=== PATIENT | female | born 1955 | race Caucasian/White ===

== ENCOUNTER 2017-02-06 07:27 | Inpatient (IN) | payer MEDICARE, OTHER ==
--- NOTE | 2017-02-04 09:37 | PREOPHP ---
DATE OF ADMISSION: 02/06/2017 PREOPERATIVE INTERNAL MEDICINE CONSULTATION, MEDICAL HISTORY AND physical The patient to have surgery with Dr. Wayne Matute 02/06/2017. REASON FOR CONSULTATION: Consultation requested by Dr. Wayne Matute for medical evaluation and cl earance of a 61-year-old woman about to undergo surgery on her shoulder. Thank you, Dr. Matute, for allowing us to participate in care of this patient. HISTORY OF PRESENT ILLNESS: Naomi Cisneros, a 61-year-old woman, has had the following surgeries on her right shoulder: 2 arthroscopic and 1 shoulder replacement. Also had arthroscopic surgery in her l eft shoulder as well as arthroscopic surgery on her left knee; however, her shoulder replacement at this point is troublesome and giving her symptoms. May need to be redone at this particular point i n time. Other than her shoulder surgeries and knee, she has had epidurals on her neck as well as in jury at L4-L5, compression fracture. Her deliveries were all vaginal. Other than that, she has not broken any big bones, has no allergies to medications, has been basically healthy without any signi ficant medical hospitalizations. MEDICATIONS: Currently is currently taking the following medications: 1. Alprazolam 2 mg b.i.d. p.r.n. 2. Atorvastatin 20 mg a day. 3. Baclofen 20 mg b.i.d. 4. Celexa 20 mg a day. 5. Lidocaine 5% patch for her back. 6. Oxycodone (Percocet) 10/325 1 q.4 hours p.r.n. 6. Temazepam 30 mg at bedtime p.r.n. 7. She was also started recently on Singulair 10 mg a day. ALLERGIES: MENTIONED ABOVE, SHE IS NOT ALLERGIC TO ANY MEDICATIONS. SOCIAL HISTORY: The patient is single, has 3 children and 2 grandchildren. She still smokes about a pack of cigarettes a day, has been doing so for many years. Alcohol socially. Drinks 2 cups of c offee a day. 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 FAMILY HISTORY: Both parents are . Father at age 76, COPD. Mother 74, had a stroke, also had hypertension, 3 siblings in good health. Family history of heart, cancer, hypertension, [place], and COPD. REVIEW OF SYSTEMS: HEENT: Periodic headaches. CARDIORESPIRATORY: Denies any chest pain or shortness of breath. GASTROINTESTINAL: No melena or hematemesis. Does have some irritable bowel, possibly secondary to her pain medications. GENITOURINARY: No urgency, frequency. GYNECOLOGIC: Post menopause, up to date. MUSCULOSKELETAL: Positive for right shoulder pain. NEUROPSYCHIATRIC: Unremarkable. GENERAL HEALTH: As above. PHYSICAL EXAMINATION: VITAL SIGNS: The patient's blood pressure was 110/68, pulse was 88 and regular, respirations were 1 8, temperature 98.5, height 5 feet 1 inch, weight 109 pounds. GENERAL: The patient was noted to be a well-developed, well-nourished female, alert and cooperative , in no apparent acute distress, oriented to time, place, and person. HEAD, EARS, EYES, NOSE, AND THROAT: Head was atraumatic. Eyes: Pupils were equal, reactive to lig ht and accommodation. Fundi were benign. Tympanic membranes were unremarkable. Nose was negative. Mouth was unremarkable. Fair oral hygiene was present. NECK: Supple without any rigidity. Trachea was midline. Thyroid was within normal limits. Neck v eins were flat. Carotid pulses were equal. No bruits were heard. BACK: Unremarkable. CHEST: Symmetrical. BREASTS AND AXILLARY: Did not reveal any masses. LUNGS: Clear to percussion and auscultation. HEART: PMI is in the fifth intercostal space at the midclavicular line. Regular sinus rhythm was n oted. No significant murmurs, rubs, or gallops being elicited. ABDOMEN: Soft, good bowel sounds were noted. No significant organomegaly, masses, or tenderness. GENITALIA: Normal female external genitalia. PELVIC/RECTAL: Per magazine grinder loader, up to date, unremarkable. EXTREMITIES: Did not reveal any clubbing, edema, or cyanosis. Peripheral pulses were physiologic a nd difficulty with movement of the right shoulder being noted. SKIN: Moist and warm without any eruptions. No gross lymphadenopathy was noted. NEUROLOGIC: Grossly intact. IMPRESSION: 1. Degenerative joint disease, right shoulder, status post total shoulder replacement. 2. Hyperlipidemia. 3. Allergies. 4. Menopausal syndrome. 5. Stable health. DISCUSSION: Review of laboratory and other data revealed the following: The patient's chemistry pa grace revealed normal electrolytes, glucose, BUN, creatinine. Liver function tests were normal other than an alkaline phosphatase which probably was bony in etiology. Temperature was 108. Random chol esterol was 240. Serum iron was slightly low at 44. CBC, UA, PT, and PTT were normal. The patient 's EKG and chest x-ray were both normal as well. Dr. Matute, I see no contraindication to this patient undergoing current proposed surgery under the desired form of anesthesia and will follow her along with you during her stay at [facility]. Thank you again, Dr. Matute, for allowing us to participate in the care of this patient. Dictated By: BOO GRIGSBY MD SS/NTS Conf#: [id number] DID#: [id number]
[2017-02-06] VITALS (26 sets, daily range): BP systolic 97–144; BP diastolic 54–90; PULSE 70–88; RESP 15–24; Ht 154.9 cm; Wt 49.0 kg
[~2017-02-06] VITALS: Ht 154.9 cm; Wt 49.0 kg
[~2017-02-06 07:27] MED LIST: ALPR2TAB PO; ATOR20TA38 PO; BACL20TA PO; BUPIVACAINE 0.5% (SDV) 30 ML, morphine SULFATE (PF) 8 MG, EPINEPHrine 0.3 MG, KETOROLAC... IRR SCH; CEFAZOLIN 2 GM/50 ML (PMX) 50 ML IVPB ONE; CITA20TA11 PO; DEXAMETHASONE 1 MG TAB PO ONE; GABAPENTIN 300 MG CAP PO ONE; LIDO700A31 TP; OXYC-284 PO; TEMA30CA PO; TRANEXAMIC ACID 1,000 MG in SOD CHLORIDE 0.9% 100 ML IVPB ONE; VANCOMYCIN 1 GM (PMX) 250 ML IVPB ONE; oxyCODONE (CR) 10 MG TAB [oxyCONTIN] PO ONE; traMADol 50 MG TAB PO ONE
[2017-02-06] MEDS ORDERED: MONT10TA21 PO (08:16)
--- NOTE | 2017-02-06 08:28 | HPN ---
Date/Time of Note Date/Time of Note DATE: 02/06/17 TIME: 08:28 Interval H&P Admission Note Pt. seen H&P reviewed: No system changes JUAN ALBERTO SOLIS MD Feb 06, 2017 08:28
[2017-02-06] MEDS ORDERED: BUPIVACAINE 0.5%/EPI (SDV) 30 ML INJ ONE (08:29)
[2017-02-06] MEDS ORDERED: POLYMYXIN/BACITRACIN 1L IRRIG ONE (08:29)
[2017-02-06] MEDS ORDERED: THROMBIN 5000 UNIT VIAL ONE (08:29)
[2017-02-06] MEDS ORDERED: FENTAnyl 50 MCG/ML VIAL ONE (09:00)
[2017-02-06] MEDS ORDERED: MIDAZOLAM 1 MG/ML 2 ML INJ ONE (09:00)
[2017-02-06] MEDS ORDERED: ROPIVACAINE 0.5 % 30 ML VIAL ONE (09:03)
[2017-02-06] MEDS ORDERED: FENTAnyl 50 MCG/ML VIAL IV PRN (10:00)
[2017-02-06] MEDS ORDERED: HYDROmorphONE (0.2 MG/ML) 10ML SYG IV PRN ×2 (10:00)
[2017-02-06] MEDS ORDERED: MEPERIDINE 25 MG INJ IV PRN (10:00)
[2017-02-06] MEDS ORDERED: NALOXONE (0.4 MG/ML) INJ IV PRN ×2 (10:00→12:30)
[2017-02-06] MEDS ORDERED: ONDANSETRON 4 MG INJ IV PRN ×2 (10:00→16:00)
[2017-02-06] MEDS ORDERED: DIPHENHYDRAMINE 50 MG INJ IV PRN ×2 (10:00→16:00)
[2017-02-06] MEDS ORDERED: CA CHLORIDE 10% 10 ML SYRINGE ONE (10:05)
[2017-02-06] MEDS ORDERED: PROPOFOL 20 ML ONE (11:25)
[2017-02-06] MEDS ORDERED: LIDOCAINE 2% (SDV) 5 ML INJ ONE (11:25)
[2017-02-06] MEDS ORDERED: CEFAZOLIN 1 GM INJ ONE (11:25)
[2017-02-06] MEDS ORDERED: ROCURONIUM 50 MG INJ ONE (11:25)
[2017-02-06] MEDS ORDERED: NEOSTIGMINE 3 MG/3 ML SYRINGE ONE (11:25)
[2017-02-06] MEDS ORDERED: GLYCOPYRROLATE 0.4 MG INJ ONE (11:25)
[2017-02-06] MEDS ORDERED: ONDANSETRON 4 MG INJ ONE (11:26)
--- NOTE | 2017-02-06 11:29 | PDOCDIS ---
Discharge Instructions DIAGNOSIS Discharge Diagnosis: Rotator cuff tear with loose humeral component CONDITION Patient Condition: Good HOME CARE INSTRUCTIONS: Diet Instructions: Regular ACTIVITY: Activity Restrictions: Slowly Increase Activity Keep Limb Elevated Bathing Restrictions: Shower FOLLOW UP/APPOINTMENTS Appointments Two weeks SCHOOL/WORK RELEASE May return to School/Work with: With Restrictions School/Work Release Comment: Five pound table top usage for six weeks JUAN ALBERTO SOLIS MD Feb 06, 2017 11:29
[2017-02-06] MEDS ORDERED: ACETAMINOPHEN 500 MG TAB PO PRN (11:30)
[2017-02-06] MEDS ORDERED: KETOROLAC 15 MG INJ IV PRN (11:30)
[2017-02-06] MEDS ORDERED: MAGNESIUM HYDROXIDE 30ML CUP PO PRN (11:30)
[2017-02-06] MEDS ORDERED: TRANEXAMIC ACID 1,000 MG in SOD CHLORIDE 0.9% 100 ML IV ONE (11:30)
--- NOTE | 2017-02-06 11:42 | OPR ---
DATE OF OPERATION: 02/06/2017 ATTENDING PHYSICIAN: Juan Alberto Matute MD FOUR H AGENT: Stevie Steele MD PREOPERATIVE DIAGNOSIS: Failed right shoulder replacement. POSTOPERATIVE DIAGNOSES: 1. Failed right total shoulder replacement. 2. Subscapularis tendon disruption. OPERATION PERFORMED: 1. Right open revision of total shoulder humeral component (revision of hemiarthroplasty). 2. Open reconstruction of subscapularis tendon deficiency. Mine Safety Director surgeon, Stevie Steele MD, was asked to be present at my request as a result of the signi ficant surgical complexity associated with this procedure, including positioning of the extremity, m anipulation and protection of the neurovascular structures. In my opinion, the assistance offered b y a windmill technician is insufficient and Dr. Steele should be compensated for his time. PROCEDURE IN DETAIL: Following administration of general endotracheal anesthesia, the patient was p laced in the beach chair position and the right upper extremity was then prepped and draped in the u sual sterile fashion. The previously made deltopectoral incision was then exposed. The subdeltoid plane was markedly scarred. There was significant bursal reactive tissue, which was excised. The h umeral component was seen to be subluxed anterosuperiorly. The superior rotator cuff was intact. T he subscapularis was detached and stretched out. There was what appeared to be loosening of the hum eral component as well. The humeral component was then carefully removed from the humeral shaft and the shaft was prepared f or an 8-mm humeral component that was placed in 35 degrees of retroversion. Attention was then directed to the medial aspect where the subscapularis tendon deficiency was noted . The subscapularis base was then mobilized as far laterally as possible. Following the complete m obilization there was approximately a 1-cm stump of the subscapularis that was used to serve as a me dial base for the repair of the subscapularis. Following this mobilization, the humeral component w as then cemented in that 35-degree retroversion position. This was a Mobiliouy component. Multiple sut ures were then passed circumferentially around the humeral component prior to insertion. Once the c ement hardened, a portion of the allograft was induced. Specifically, we used an allograft skin, wh ich is 5 mm in thickness. This was passed through the lateral sutures and then used as a bridge acr oss to the medial aspect of the subscapularis in order to reconstruct that tissue. The joint was th en irrigated thoroughly, closed in layers. A Prineo dressing was then applied. The patient was the n awakened after being placed in a sling and taken to the recovery room in stable condition. Estima kristine blood loss for this procedure was 150 mL. Postoperative x-rays will be obtained in the recovery room. Dictated By: JUAN ALBERTO RODRIGUEZ/CAROLA Conf#: [id number] DID#: [id number]
[2017-02-06] MEDS ORDERED: CEFAZOLIN 1 GM/50 ML (PMX) 50 ML IVPB SCH (12:00)
--- NOTE | 2017-02-06 13:08 | RADRPT ---
PROCEDURE: XR right shoulder. CLINICAL INDICATION: Postoperative TECHNIQUE: AP, Internal and external rotation views of the right shoulder were performed. COMPARISON: Plain radiographs of the right shoulder from 12/14/2015 FINDINGS: There is normal osseous mineralization and alignment. No acute fracture or osseous lesion is identified. The right shoulder prosthesis is again noted in near anatomic alignment. The rim of lucency seen pr eviously around the humeral head prosthesis is no longer visualized. Likely postsurgical changes ar e noted including subcutaneous emphysema. The acromioclavicular joint is intact. RPTAT: AA IMPRESSION: Right shoulder prosthesis in near anatomic alignment without evidence of hardware loosening and is l ikely postoperative changes, as above. Physician Don Date Time Electronically viewed and signed by Sarbjit Dixon Physician on 02/06/2017 13:07 /
--- NOTE | 2017-02-06 13:34 | CONS ---
DATE OF ADMISSION: 02/06/2017 DATE OF CONSULTATION: 02/06/2017 POSTOPERATIVE CONSULT FOLLOWUP The patient had surgery with Dr. Wayne Matute on 02/06/2017, a rotator cuff repair. The patient was seen in the recovery room postoperatively. She was quite alert with no particular i ssue. He seemed comfortable. PHYSICAL EXAMINATION: VITAL SIGNS: The patient's vital signs revealed a blood pressure of 126/63, respiratory rate 22, pul se 72, O2 saturation 99% on nasal cannula at 2 liters. HEENT: Unremarkable. LUNGS: Clear. HEART: Reveals a regular rhythm. IMPRESSION: 1. Status post right shoulder surgery. 2. Hyperlipidemia. 3. Chronic pain syndrome. 4. Allergies. DISCUSSION: The plan is to follow the patient with you. Preoperative medicines will be ordered in terms of her allergy and other medications that she is taking. CONDITION: Postoperatively is stable. Thank you again, Dr. Matute, for allowing us to participate in care of this patient. Dictated By: BOO BEAL/CAROLA Conf#: [id number] DID#: [id number]
[2017-02-06] MEDS: DEXAMETHASONE 2 MG TAB PO SCH ×3 (14:00→22:56)
[2017-02-06] MEDS ORDERED: OXYCODONE/ACETAMINOPHEN (5/325) TAB PO PRN (16:00)
[2017-02-06] MEDS ORDERED: morphine 2 MG INJ IV PRN (16:00)
[2017-02-06] MEDS ORDERED: morphine 4 MG/ML VIAL IV PRN (16:00)
[2017-02-06] MEDS: CEFAZOLIN 1 GM/50 ML (PMX) 50 ML IVPB SCH (16:44)
[2017-02-06] MEDS: SENNA/DOCUSATE NA (8.6MG/50MG) TAB PO SCH (20:50)
[2017-02-06] MEDS: BACLOFEN 10 MG TAB PO SCH (20:50)
[2017-02-06] MEDS ORDERED: ZOLPIDEM 5 MG TAB PO PRN (21:00)
[2017-02-06] MEDS ORDERED: ATORVASTATIN 20 MG TAB PO SCH (21:00)
[2017-02-06] MEDS ORDERED: GABAPENTIN 300 MG CAP PO SCH (21:00)
[2017-02-06] MEDS ORDERED: MONTELUKAST 10 MG TAB PO SCH (21:00)
[2017-02-06] MEDS ORDERED: CEPASTAT LOZENGE MT PRN (22:00)
[2017-02-06] MEDS ORDERED: ALPRAZOLAM 1 MG TAB PO PRN (22:00)
[2017-02-07] MEDS: CEFAZOLIN 1 GM/50 ML (PMX) 50 ML IVPB SCH ×2 (01:23→08:27)
[2017-02-07] MEDS: OXYCODONE/ACETAMINOPHEN (5/325) TAB PO PRN ×2 (04:29→08:32)
[2017-02-07] MEDS: DEXAMETHASONE 2 MG TAB PO SCH (06:01)
--- NOTE | 2017-02-07 06:09 | PN ---
Date/Time of Note Date/Time of Note DATE: 02/07/17 TIME: 06:08 24 hour Interval Summary Patient is awake and alert, with no complaints. Physical examination: His wound is clean and dry. He is neurologically intact. He has no signs of DVT. Impression: Status post total shoulder replacement Plan: She will be discharged this morning followed up in 2 weeks Physical Exam Vital Signs Date Time Temp Pulse Resp B/P Pulse Ox O2 Delivery O2 Flow Rate FiO2 02/06/17 21:22 98.8 75 20 128/72 94 02/06/17 17:30 Room Air 02/06/17 12:40 2.0 Intake and Output 02/06/17 02/06/17 02/07/17 15:00 23:00 07:00 Intake Total 30 ml 850 ml 850 ml Output Total 200 ml Balance 30 ml 650 ml 850 ml VTE Prophylaxis VTE Prophylaxis Intervention: anti-embolic stocking Lines/Catheters IV Catheter Type: Saline Lock [place] in Place: No Medications Medications Home Meds Reported Medications Montelukast Sodium* (Singulair*) 10 Mg Tablet, 10 MG PO QHS, #30 TAB 02/06/17 Temazepam* (Temazepam*) 30 Mg Capsule, 30 MG PO HS Y for INSOMNIA, CAP 12/14/15 Oxycodone Hcl-Acetaminophen* (Percocet*) 10-325 Mg Tablet, 1 TAB PO Q4H Y for MODERATE PAIN LEVEL 4-6, TAB 12/14/15 Baclofen* (Baclofen*) 20 Mg Tablet, 20 MG PO BID, TAB 12/14/15 Alprazolam* (Xanax*) 2 Mg Tablet, 2 MG PO BID Y for AGITATION/ANXIETY, TAB 12/14/15 Citalopram Hydrobromide* (Celexa*) 20 Mg Tablet, 20 MG PO DAILY, #30 TAB 12/14/15 Atorvastatin Calcium* (Atorvastatin Calcium*) 20 Mg Tablet, 20 MG PO QHS, #30 TAB 12/14/15 Discontinued Reported Medications Lidocaine 5%* (Lidocaine 5%) 1 Patch Patch, 1 PATCH TP DAILY, PATCH 12/14/15 JUAN ALBERTO SOLIS MD Feb 07, 2017 06:09
--- NOTE | 2017-02-07 06:10 | DS ---
Date/Time of Note Date/Time of Note DATE: 02/07/17 TIME: 06:09 Discharge Summary Admission/Discharge Info Admit Date/Time Feb 06, 2017 at 07:27 Discharge Date/Time February 07, 2017 Final Diagnosis Subscapularis tear with loose humeral shoulder component Patient Condition: Good Procedures Revision of shoulder replacement with subscapularis repair Hx of Present Illness Pain and instability following shoulder replacement Hospital Course Patient was admitted, underwent an uncomplicated procedure and was discharged the next day. Home Meds Reported Medications Montelukast Sodium* (Singulair*) 10 Mg Tablet, 10 MG PO QHS, #30 TAB 02/06/17 Temazepam* (Temazepam*) 30 Mg Capsule, 30 MG PO HS Y for INSOMNIA, CAP 12/14/15 Oxycodone Hcl-Acetaminophen* (Percocet*) 10-325 Mg Tablet, 1 TAB PO Q4H Y for MODERATE PAIN LEVEL 4-6, TAB 12/14/15 Baclofen* (Baclofen*) 20 Mg Tablet, 20 MG PO BID, TAB 12/14/15 Alprazolam* (Xanax*) 2 Mg Tablet, 2 MG PO BID Y for AGITATION/ANXIETY, TAB 12/14/15 Citalopram Hydrobromide* (Celexa*) 20 Mg Tablet, 20 MG PO DAILY, #30 TAB 12/14/15 Atorvastatin Calcium* (Atorvastatin Calcium*) 20 Mg Tablet, 20 MG PO QHS, #30 TAB 12/14/15 Discontinued Reported Medications Lidocaine 5%* (Lidocaine 5%) 1 Patch Patch, 1 PATCH TP DAILY, PATCH 12/14/15 JUAN ALBERTO SOLIS MD Feb 07, 2017 06:10
[2017-02-07 08:08] VITALS: BP 126/67; RESP 18
[2017-02-07] MEDS: BACLOFEN 10 MG TAB PO SCH (08:26)
[2017-02-07] MEDS: SENNA/DOCUSATE NA (8.6MG/50MG) TAB PO SCH (08:27)
[2017-02-07] MEDS ORDERED: CITALOPRAM 20 MG TAB PO SCH (09:00)
[2017-02-07] MEDS ORDERED: ASPIRIN 81 MG TAB PO SCH (09:00)
--- NOTE | 2017-02-07 10:17 | CONS ---
DATE OF ADMISSION: 02/06/2017 DATE OF CONSULTATION: 02/07/2017 POSTOPERATIVE CONSULT FOLLOWUP SUBJECTIVE: The patient alert this morning, had an episode of choking on some water that she was tr rahul to drink. Feels better now, but it upset her last night. OBJECTIVE: VITAL SIGNS: The patient's vital signs this morning reveal the following: Temperature 98.2, pulse 82, respirations 18, blood pressure 126/67, O2 saturation 94%. HEENT: Unremarkable. EXTREMITIES: The wound looks clean in the right shoulder. LUNGS: Clear. HEART: Reveals a regular rhythm. ABDOMEN: Unremarkable. IMPRESSION: 1. Status post right shoulder surgery. 2. Hyperlipidemia. 3. Chronic pain syndrome. 4. Environmental allergies. DISCUSSION: Review of laboratory data, there was no laboratory ordered for today. The patient is g enerally stable. She was seen by Dr. Matute today and was discharged by Dr. Matute. Condition is stable from a medical standpoint and management and discharge per Dr. Wayne Matute. Thank you again, Dr. Matute, for allowing us to participate in care of this patient. Dictated By: BOO GRIGSBY MD SS/NTS Conf#: [id number] DID#: [id number]
== END 2017-02-07 09:40 | disposition home or self-care (01) | DRG 483 ==
LOC: REC 07:27 → MS1 13:20
PROVIDERS: ADMIT Orthopaedic Surgery; ATTEND Orthopaedic Surgery
PROC: 0RPJ0JZ Removal of Synthetic Substitute from Right Shoulder Joint, Open Approach (ICD-10-PCS; 2017-02-06)
PROC: 0LQ10ZZ Repair Right Shoulder Tendon, Open Approach (ICD-10-PCS; 2017-02-06)
PROC: 0RRJ0J6 Replacement of Right Shoulder Joint with Synthetic Substitute, Humeral Surface, Open Approach (ICD-10-PCS; principal; 2017-02-06 09:30)
DX: T84.038A Mechanical loosening of other internal prosthetic joint, initial encounter (principal); E78.5 Hyperlipidemia, unspecified; Z96.611 Presence of right artificial shoulder joint; F17.210 Nicotine dependence, cigarettes, uncomplicated; Z78.0 Asymptomatic menopausal state; Y84.8 Other medical procedures as the cause of abnormal reaction of the patient, or of later complication, without mention of misadventure at the time of the procedure; Y92.019 Unspecified place in single-family (private) house as the place of occurrence of the external cause; M75.101 Unspecified rotator cuff tear or rupture of right shoulder, not specified as traumatic; G89.4 Chronic pain syndrome
CPT/HCPCS: Z7610; C1713; C1776; J0171; J0690; J0735; J1885; J2250; J2270; J2274; J2405; J2710; J2795; J3010; J3370; Q4107

== ENCOUNTER 2017-07-03 05:22 | Inpatient (IN) | payer MEDICARE, OTHER ==
--- NOTE | 2017-06-26 10:59 | PREOPHP ---
DATE OF ADMISSION: 07/03/2017 Patient to have surgery with Dr. Wayne Matute on 07/03/2017. CONSULTATION REQUESTED BY: Dr. Wayne Matute for medical evaluation and clearance of a 61-year-old woman about to undergo surgery. Thank you, Dr. Matute, for allowing us participate in the care of this patient. Naomi Cisneros is a 61-year-old woman, who underwent a shoulder replacement 5 months ago. Apparently it failed and patient is currently being admitted for a revision and replacement of a shoulder replacement on the right shoulder. PAST SURGICAL HISTORY: Patient has had multiple surgeries. Had 2 arthroscopic surgeries on that shoulder, also 2 replacements and had left-sided arthroscopic surgery, had C-spine epidural done and L4-L5 issues as well treated in the past. PAST MEDICAL HISTORY: From a medical standpoint, she has had no hospitalizations. Has had vaginal deliveries. She has not broken any bones. MEDICATIONS: Currently is taking the following medications: Lipitor 20 mg a day, Xanax, temazepam, Percocet, Singulair 10 mg a day, Celexa 20 mg a day, as well as baclofen 20 mg a day. ALLERGIES: THE PATIENT IS NOT ALLERGIC TO ANY MEDICATIONS. SOCIAL HISTORY: Patient is a , has 3 children and 2 grandchildren. She smokes about a half a pack of cigarettes a day. Alcohol socially. Does drink coffee. Usually has no difficulty sleeping at night. FAMILY HISTORY: Both parents are . Father was 76, of COPD and complications thereof. Mother also in her 70s, hypertension and stroke. Three siblings are alive and well. There is a family history of heart, cancer, hypertension, and stroke. REVIEW OF SYSTEMS: HEENT: Periodic tension headaches. CARDIORESPIRATORY: Denies any chest pain or shortness of breath. GASTROINTESTINAL: No melena or hematemesis. GENITOURINARY: No urgency or frequency. GYNECOLOGIC: Postmenopausal. 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 MUSCULOSKELETAL: Positive for right shoulder pain. NEUROPSYCHIATRIC: Basically unremarkable, other than being somewhat despondent because of her issues with chronic right shoulder pain. GENERAL HEALTH: As above. PHYSICAL EXAMINATION: VITAL SIGNS: Patient's blood pressure was 116/64, pulse was 80 and regular, respirations 19, temperature 98.4. Height 5 feet 1 inch, weight 105 pounds. GENERAL APPEARANCE: Patient was noted to be a well-developed, well-nourished female, alert and cooperative, in no apparent acute distress. Oriented to time, place, and person. HEENT: Head was atraumatic. The eyes: Pupils were equal, reactive to light and accommodation. Fundi were benign. Tympanic membranes were unremarkable. Nose was negative. Mouth was unremarkable. Fair oral hygiene was present. NECK: Supple without any rigidity. Trachea was midline. Thyroid was within normal limits. Neck veins were flat. Carotid pulses were equal. No bruits were heard. BACK: Unremarkable. CHEST: Symmetrical. BREAST AND AXILLARY: Did not reveal any masses. LUNGS: Clear to percussion and auscultation. HEART: PMI is 5th intercostal space at the midclavicular line. Regular sinus rhythm was noted. No significant murmurs, rubs, or gallops being elicited. ABDOMEN: Soft. Good bowel sounds were noted. No significant organomegaly masses or tenderness. GENITALIA: Normal female external genitalia. PELVIC AND RECTAL: Per boom supervisor. Up-to-date. EXTREMITIES: Did not reveal any clubbing, edema, or cyanosis. Scar was noted in the right shoulder area and limitation of motion secondary to discomfort. Peripheral pulses were physiologic. SKIN: Moist and warm without any eruptions. No gross lymphadenopathy was noted. NEUROLOGIC: Exam was grossly intact. IMPRESSION: 1. 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 2. Degenerative joint disease. 3. Hyperlipidemia. 4. Chronic pain syndrome. 5. Gastroesophageal reflux disease. 6. Stable health. LABORATORY AND OTHER DATA: Review revealed the following. Patient's chemistry panel revealed normal electrolytes. Random glucose 106, calcium elevated at 108. However, the total protein was elevated as well, possibly contributing to that. The patient's liver function tests are normal. Minimal elevation of alk phos, probably secondary to bony issues. Random cholesterol was 256. Iron, vitamin D, CBC, sed rate, UA, PT and PTT were within normal limits. Patient's EKG was normal. Patient's chest x-ray was normal as well. DISCUSSION: Dr. Matute, I see no contraindications to the patient undergoing current proposed surgery under desired form of anesthesia and feel she is a suitable candidate at this particular point in time, and will be happy to follow her along with you during her stay at [facility]. Thank you again, Dr. Matute, for allowing us to participate in the care this patient. Dictated By: Sammy Holt MD /maude/partha /Document#: [id number]
[2017-07-02 15:09] VITALS: BMI 20.2
[2017-07-03] VITALS (23 sets, daily range): BP systolic 90–126; BP diastolic 53–70; PULSE 62–72; RESP 16–35; Ht 154.9 cm; Wt 48.3 kg
[~2017-07-03] VITALS: Ht 154.9 cm; Wt 48.3 kg
[~2017-07-03 05:22] MED LIST changes: -BUPIVACAINE 0.5% (SDV) 30 ML, morphine SULFATE (PF) 8 MG, EPINEPHrine 0.3 MG, KETOROLAC... IRR SCH; -CEFAZOLIN 2 GM/50 ML (PMX) 50 ML IVPB ONE; -DEXAMETHASONE 1 MG TAB PO ONE; -GABAPENTIN 300 MG CAP PO ONE; -LIDO700A31 TP; +MONT10TA21 PO; -TRANEXAMIC ACID 1,000 MG in SOD CHLORIDE 0.9% 100 ML IVPB ONE; -VANCOMYCIN 1 GM (PMX) 250 ML IVPB ONE; -oxyCODONE (CR) 10 MG TAB [oxyCONTIN] PO ONE; -traMADol 50 MG TAB PO ONE
[2017-07-03] MEDS ORDERED: LACTATED RINGER'S 1,000 ML IV* SCH (06:00)
[2017-07-03] MEDS ORDERED: oxyCODONE (CR) 10 MG TAB [oxyCONTIN] PO SCH (06:15)
[2017-07-03] MEDS ORDERED: DEXAMETHASONE 1 MG TAB PO ONE (06:15)
[2017-07-03] MEDS ORDERED: traMADol 50 MG TAB PO ONE (06:15)
[2017-07-03] MEDS ORDERED: CEFAZOLIN 2 GM/50 ML (PMX) 50 ML IVPB ONE (06:15)
[2017-07-03] MEDS ORDERED: GABAPENTIN 300 MG CAP PO ONE (06:15)
[2017-07-03] MEDS ORDERED: ROPIVACAINE 0.5 % 30 ML VIAL ONE (06:38)
[2017-07-03] MEDS ORDERED: CEFAZOLIN 1 GM INJ ONE (06:40)
[2017-07-03] MEDS ORDERED: ONDANSETRON 4 MG INJ ONE (06:40)
[2017-07-03] MEDS ORDERED: LIDOCAINE 2% (SDV) 5 ML INJ ONE (06:40)
[2017-07-03] MEDS ORDERED: PROPOFOL 20 ML ONE (06:40)
[2017-07-03] MEDS ORDERED: METOCLOPRAMIDE 10 MG INJ ONE (06:40)
--- NOTE | 2017-07-03 06:46 | HPN ---
Date/Time of Note Date/Time of Note DATE: 07/03/17 TIME: 06:45 Interval H&P Admission Note Pt. seen H&P reviewed: No system changes JUAN ALBERTO SOLIS MD Jul 03, 2017 06:45
[2017-07-03] MEDS ORDERED: CA CHLORIDE 10% 10 ML SYRINGE ONE (06:48)
[2017-07-03] MEDS ORDERED: BUPIVACAINE 0.5%/EPI (SDV) 10 ML INJ ONE (06:48)
[2017-07-03] MEDS ORDERED: THROMBIN 5000 UNIT VIAL ONE (06:48)
[2017-07-03] MEDS ORDERED: POLYMYXIN/BACITRACIN 1L IRRIG ONE (06:48)
[2017-07-03] MEDS ORDERED: SEVOFLURANE 15 MIN ONE (07:00)
[2017-07-03] MEDS ORDERED: EPHEDrine SULFATE 50 MG/5 ML SYG ONE (08:25)
[2017-07-03] MEDS ORDERED: TRANEXAMIC ACID 1,000 MG in SOD CHLORIDE 0.9% 100 ML IV ONE (08:30)
[2017-07-03] MEDS ORDERED: OXYCODONE/ACETAMINOPHEN (5/325) TAB PO PRN (08:30)
[2017-07-03] MEDS ORDERED: ZOLPIDEM 5 MG TAB PO PRN (08:30)
[2017-07-03] MEDS ORDERED: morphine 4 MG/ML VIAL IV PRN (08:30)
[2017-07-03] MEDS ORDERED: morphine 2 MG INJ IV PRN (08:30)
[2017-07-03] MEDS ORDERED: ONDANSETRON 4 MG INJ IV PRN (08:30)
[2017-07-03] MEDS ORDERED: DIPHENHYDRAMINE 50 MG INJ IV PRN (08:30)
[2017-07-03] MEDS ORDERED: KETOROLAC 15 MG INJ IV PRN (08:30)
[2017-07-03] MEDS ORDERED: MAGNESIUM HYDROXIDE 30ML CUP PO PRN (08:30)
[2017-07-03] MEDS ORDERED: ALPRAZOLAM 1 MG TAB PO PRN (08:30)
[2017-07-03] MEDS ORDERED: ACETAMINOPHEN 500 MG TAB PO PRN (08:30)
--- NOTE | 2017-07-03 08:43 | OPR ---
Date/Time of Note Date/Time of Note DATE: 07/03/17 TIME: 08:38 Operative Report Procedure Date: Jul 03, 2017 Preoperative Diagnosis Failed right total shoulder replacement with massive unrepairable rotator cuff tear Postoperative Diagnosis 1. Failed right total shoulder replacement 2. Massive unrepairable rotator cuff tear, right shoulder Operation Performed Revision of right total shoulder to reverse total shoulder replacement Surgeon: JUAN ALBERTO SOLIS MD Electric Freight Car Operator: CASIMIRO SEYMOUR MD Estimated Blood Loss: 50 - 100 ml's Transfusion Required: no Specimen: none Complications: no Pt Condition Post Procedure: stable Disposition: PACU Procedure Description SUEDING MACHINE OPERATOR SURGEON: [Casimiro Seymour MD] was asked to be present for this case at my request. Assistance was necessary as a result of the highly technical nature of this operation. When performing an open total shoulder replacement, it is critical to have a trained assistant professor of geography who is an expert in handling the extremity and assisting the surgeon in tasks such as suture management and knot-tying techniques as well as implants. This assistance cannot be performed by a medical equipment repair technician, as it is considered an integral part of the procedure and the assistant professor of geography should be compensated for their time. PROCEDURE IN DETAIL: Following the administration of general anesthesia supplemented with a peripheral nerve block for postoperative pain control, the patient was examined under anesthesia. Examination of the right shoulder revealed very significant stiffness including a forward flexion of about 100 abduction 90 maximal external rotation 90 with severe crepitus. The patient was then placed in the beach chair position. Sterile prep and drape was then undertaken. An extended deltopectoral incision was then carried through the interval exposing the conjoined tendon and retracting it medially. The subscapularis was completely torn and retracted. The evident sutures from the prior repair were in place. The superior rotator cuff was also deficient. The humeral head was sitting anterior and superior. The humeral component was then identified. The humeral head was removed and the metaphyseal component was then also removed. The shaft was seen to be stable and solid within the intramedullary canal of the humerus. The glenoid was then exposed. The glenoid component was then removed relatively atraumatically preserving the bone completely. The central peg hole was then used for preparing for a central baseplate a standard Depuy baseplate was then implanted with 4 peripheral screws with solid fixation. A 38 mm glenoid sphere was also applied with solid fixation. The humerus was then prepared for a standard humeral component with a standard metaphysis and a 3 mm liner.. The actual components were implanted with solid fixation. The arm was taken through full range of motion with no evident instability. The joint was then thoroughly irrigated, the deep tissues were approximated using #1 suture followed by closure of the deep layer using 2-0 Monocryl. The skin was closed using 4-0 Monocryl suture, and a waterproof dressing. An Ultrasling was then applied. The patient was awakened and transported to the recovery room in stable condition. Estimated blood loss for this procedure was [50 cc]. Radiographs will be obtained in the recovery room. JUAN ALBERTO SOLIS MD Jul 03, 2017 08:43
--- NOTE | 2017-07-03 08:44 | PDOCDIS ---
Discharge Instructions DIAGNOSIS Discharge Diagnosis Failed right total shoulder replaced CONDITION Patient Condition: Good HOME CARE INSTRUCTIONS: Diet Instructions: Regular ACTIVITY: Activity Restrictions: Slowly Increase Activity Keep Limb Elevated Bathing Restrictions: Shower FOLLOW UP/APPOINTMENTS Follow-up Plan 2 weeks SCHOOL/WORK RELEASE May return to School/Work with: With Restrictions (5 pounds tabletop usage for 6 weeks) JUAN ALBERTO SOLIS MD Jul 03, 2017 08:43
[2017-07-03] MEDS ORDERED: SOD CHLORIDE 0.9% 100 ML, TRANEXAMIC ACID 3,000 MG IRR SCH ×2 (09:00)
[2017-07-03] MEDS ORDERED: TRANEXAMIC ACID 1,000 MG in SOD CHLORIDE 0.9% 100 ML IVPB SCH (09:00)
[2017-07-03] MEDS: SENNA/DOCUSATE NA (8.6MG/50MG) TAB PO SCH ×2 (09:00→20:26)
[2017-07-03] MEDS ORDERED: BUPIVACAINE 0.5% (SDV) 30 ML, morphine SULFATE (PF) 8 MG, EPINEPHrine 0.3 MG, KETOROLAC... IRR SCH ×7 (09:00)
[2017-07-03] MEDS: CEFAZOLIN 1 GM/50 ML (PMX) 50 ML IVPB SCH ×2 (09:38→17:22)
--- NOTE | 2017-07-03 09:49 | RADRPT ---
PROCEDURE: XR right shoulder. CLINICAL INDICATION: Pain TECHNIQUE: Internal and external rotation views of the right shoulder were performed. COMPARISON: 02/06/2017 FINDINGS: There are postsurgical changes in the soft tissues of the right shoulder. The patient is status pos t right shoulder replacement. RPTAT: AA IMPRESSION: Status post right shoulder replacement with postsurgical changes in the soft tissues. .Basim Fagan MD, MD Date Time Electronically viewed and signed by .Basim Fagan MD, MD on 07/03/2017 09:49 .S/
[2017-07-03] MEDS: CITALOPRAM 20 MG TAB PO SCH (11:59)
[2017-07-03] MEDS: DEXAMETHASONE 2 MG TAB PO SCH ×3 (12:00→23:38)
[2017-07-03] MEDS: BACLOFEN 10 MG TAB PO SCH ×2 (12:00→20:26)
--- NOTE | 2017-07-03 13:26 | CONS ---
Date/Time of Note Date/Time of Note DATE: 07/03/17 TIME: 13:20 Consult Date/Type/Reason Admit Date/Time Jul 03, 2017 at 05:22 Initial Consult Date o06/27/2017 Type of Consultation: internal medicine Reason for Consultation pre-op evaluation and clearance Ordering Provider: JUAN ALBERTO SOLIS MD Subjective post op stable having trouble with shoulder brace otherwise doing well Objective Vital Signs Date Time Temp Pulse Resp B/P Pulse Ox O2 Delivery O2 Flow Rate FiO2 07/03/17 12:56 98.1 66 18 90/54 91 07/03/17 11:36 Nasal Cannula 2.0 Exam vss heent negative lungs clear heart regular rhythm abdomen soft Results/Medications Medications Current Medications Lactated Ringer's (Lr) 1,000 ml @ 20 mls/hr Q24H IV* Last administered on 07/03 10:32; Admin Dose 20 MLS/HR; Start 07/03/17 at 06:00; Stop 07/05/17 at 07: 59 Alprazolam (Xanax) 2 mg BID PRN PO AGITATION/ANXIETY; Start 07/03/17 at 08:30 Atorvastatin Calcium (Lipitor) 20 mg QHS PO ; Start 07/03/17 at 21:00 Baclofen (Lioresal) 20 mg BID PO Last administered on 07/03/17 12:00; Admin Dose 20 MG; Start 07/03/17 at 09:00 Citalopram Hydrobromide (Celexa) 20 mg DAILY PO Last administered on 07/03/17 11:59; Admin Dose 20 MG; Start 07/03/17 at 09:00 Montelukast Sodium 10 mg 10 mg QHS PO ; Start 07/03/17 at 21:00 Cefazolin Sodium (Ancef 1 Gm/50 ml (Pmx)) 50 ml @ 100 mls/hr Q8H IVPB Last administered on 07/03/17 09:38; Admin Dose 100 MLS/HR; Start 07/03/17 at 08:30 ; Stop 07/04/17 at 00:59 Senna/Docusate Sodium (Senokot-S) 1 tab BID PO ; Start 07/03/17 at 09:00 Simethicone (Mylicon) 80 mg TID PRN PO DISTENSION/GAS/BLOATING; Start 07/03/17 at 08:30 Magnesium Hydroxide (Milk Of Mag) 30 ml BID PRN PO CONSTIPATION; Start at 08:30 Acetaminophen (Tylenol Tab) 1,000 mg Q4H PRN PO TEMP GREATER THAN 100.4F; Start 07/03/17 at 08:30 Dexamethasone (Decadron) 2 mg Q6 PO Last administered on 07/03/17t 12:00; Admin Dose 2 MG; Start 07/03/17 at 12:00; Stop 07/04/17 at 06:01 Gabapentin (Neurontin) 300 mg HS PO ; Start 07/03/17 at 21:00 Oxycodone/ Acetaminophen (Percocet (5/ 325)) 1 tab Q4H PRN PO PAIN LEVEL 1-5; Start 07/03/17 at 08:30 Oxycodone/ Acetaminophen (Percocet (5/ 325)) 2 tab Q4H PRN PO PAIN LEVEL 6-10; Start 07/03/17 at 08:30 Morphine Sulfate (morphine) 2 mg Q2H PRN IV PAIN LEVEL 1-5; Start 07/03/17 at 08:30 Morphine Sulfate (morphine) 4 mg Q4H PRN IV PAIN LEVEL 6-10; Start 07/03/17 at 08:30 Ketorolac Tromethamine (Toradol) 15 mg Q6H PRN IV PAIN; Start 07/03/17 at 08:30 ; Stop 07/06/17 at 08:29 Ondansetron HCl (Zofran Inj) 4 mg Q6H PRN IV NAUSEA AND/OR VOMITING; Start at 08:30 Diphenhydramine HCl (Benadryl) 25 mg Q6H PRN IV PRURITUS; Start 07/03/17 at 08: 30 Aspirin (Aspirin) 81 mg DAILY PO ; Start 07/04/17 at 09:00 Assessment/Plan Chief Complaint/Hosp Course post op shoulder surgery for adhesive capsulitis Problems: Additional Assessment/Plan continue pre-op meds will follow with you thank you--BOO Carolina MD Jul 03, 2017 13:26
[2017-07-03] MEDS: OXYCODONE/ACETAMINOPHEN (5/325) TAB PO PRN (20:29)
[2017-07-03] MEDS ORDERED: MONTELUKAST 10 MG TAB PO SCH (21:00)
[2017-07-03] MEDS ORDERED: GABAPENTIN 300 MG CAP PO SCH (21:00)
[2017-07-03] MEDS ORDERED: ATORVASTATIN 20 MG TAB PO SCH (21:00)
[2017-07-04 00:48] VITALS: BP 130/71; RESP 20
[2017-07-04] MEDS: CEFAZOLIN 1 GM/50 ML (PMX) 50 ML IVPB SCH (02:08)
[2017-07-04] MEDS: OXYCODONE/ACETAMINOPHEN (5/325) TAB PO PRN (02:12)
[2017-07-04 03:39] VITALS: BP 137/72; RESP 20
[2017-07-04] MEDS: DEXAMETHASONE 2 MG TAB PO SCH (05:08)
[2017-07-04 05:11] VITALS: BP 132/76; PULSE 72
--- NOTE | 2017-07-04 06:39 | PN ---
Date/Time of Note Date/Time of Note DATE: 07/04/17 TIME: 06:38 24 hour Interval Summary Patient is awake and alert with no complaints this morning. Physical Exam Physical examination: Her wound is clean and dry. The dressing is intact. She is neurologically intact. She has no signs of DVT. Vital Signs Date Time Temp Pulse Resp B/P Pulse Ox O2 Delivery O2 Flow Rate FiO2 07/04/17 05:11 98.6 72 132/76 94 Nasal Cannula 07/04/17 03:39 20 07/03/17 20:20 2.0 Intake and Output 07/03/17 07/03/17 07/04/17 15:00 23:00 07:00 Intake Total 650 ml 1190 ml 920 ml Output Total 30 ml 500 ml Balance 620 ml 1190 ml 420 ml VTE Prophylaxis VTE Prophylaxis Intervention: anti-embolic stocking Lines/Catheters IV Catheter Type: Saline Lock [place] in Place: No Assessment/Plan Chief Complaint/Hosp Course post op shoulder surgery for adhesive capsulitis Problems: Assessment/Plan Assessment: Status post reverse total shoulder replacement Plan: She will do physical therapy this morning. She will be discharged to be followed up in the office in 2 weeks. Medications Medications Home Meds Reported Medications Montelukast Sodium* (Singulair*) 10 Mg Tablet, 10 MG PO QHS, #30 TAB 02/06/17 Temazepam* (Temazepam*) 30 Mg Capsule, 30 MG PO HS Y for INSOMNIA, CAP 12/14/15 Oxycodone Hcl-Acetaminophen* (Percocet*) 10-325 Mg Tablet, 1 TAB PO Q4H Y for MODERATE PAIN LEVEL 4-6, TAB 12/14/15 Baclofen* (Baclofen*) 20 Mg Tablet, 20 MG PO BID, TAB 12/14/15 Alprazolam* (Xanax*) 2 Mg Tablet, 2 MG PO BID Y for AGITATION/ANXIETY, TAB 12/14/15 Citalopram Hydrobromide* (Celexa*) 20 Mg Tablet, 20 MG PO DAILY, #30 TAB 12/14/15 Atorvastatin Calcium* (Atorvastatin Calcium*) 20 Mg Tablet, 20 MG PO QHS, #30 TAB 12/14/15 JUAN ALBERTO SOLIS MD Jul 04, 2017 06:39
--- NOTE | 2017-07-04 06:40 | DS ---
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 On postoperative day #1 she was afebrile wound was clean and dry to be discharged and followed up in the office in 2 weeks. Home Meds Reported Medications Montelukast Sodium* (Singulair*) 10 Mg Tablet, 10 MG PO QHS, #30 TAB 02/06/17 Temazepam* (Temazepam*) 30 Mg Capsule, 30 MG PO HS Y for INSOMNIA, CAP 12/14/15 Oxycodone Hcl-Acetaminophen* (Percocet*) 10-325 Mg Tablet, 1 TAB PO Q4H Y for MODERATE PAIN LEVEL 4-6, TAB 12/14/15 Baclofen* (Baclofen*) 20 Mg Tablet, 20 MG PO BID, TAB 12/14/15 Alprazolam* (Xanax*) 2 Mg Tablet, 2 MG PO BID Y for AGITATION/ANXIETY, TAB 12/14/15 Citalopram Hydrobromide* (Celexa*) 20 Mg Tablet, 20 MG PO DAILY, #30 TAB 12/14/15 Atorvastatin Calcium* (Atorvastatin Calcium*) 20 Mg Tablet, 20 MG PO QHS, #30 TAB 12/14/15 Primary Care Provider MD WILL Reza CARLOS A MD Jul 04, 2017 06:40
[2017-07-04 07:33] VITALS: BP 131/71; RESP 18
--- NOTE | 2017-07-04 08:03 | CONS ---
Date/Time of Note Date/Time of Note DATE: 07/04/17 TIME: 08:00 Consult Date/Type/Reason Admit Date/Time Jul 03, 2017 at 05:22 Initial Consult Date o06/27/2017 Type of Consultation: internal medicine Ordering Provider: JUAN ALBERTO SOLIS MD Subjective alert complaining of pain right shoulder. Objective Vital Signs Date Time Temp Pulse Resp B/P Pulse Ox O2 Delivery O2 Flow Rate FiO2 07/04/17 07:33 98.1 67 18 131/71 96 07/04/17 05:11 Nasal Cannula 07/03/17 20:20 2.0 Intake and Output 07/03/17 07/03/17 07/04/17 15:00 23:00 07:00 Intake Total 650 ml 1190 ml 920 ml Output Total 30 ml 500 ml Balance 620 ml 1190 ml 420 ml Exam vss stable lungs clear heart regular mrhythm shoulder sling on Results/Medications Medications Current Medications Lactated Ringer's (Lr) 1,000 ml @ 20 mls/hr Q24H IV* Last administered on 07/03 10:32; Admin Dose 20 MLS/HR; Start 07/03/17 at 06:00; Stop 07/05/17 at 07: 59 Alprazolam (Xanax) 2 mg BID PRN PO AGITATION/ANXIETY; Start 07/03/17 at 08:30 Atorvastatin Calcium (Lipitor) 20 mg QHS PO Last administered on 07/03/17 20: 26; Admin Dose 20 MG; Start 07/03/17 at 21:00 Baclofen (Lioresal) 20 mg BID PO Last administered on 07/03/17 20:26; Admin Dose 20 MG; Start 07/03/17 at 09:00 Citalopram Hydrobromide (Celexa) 20 mg DAILY PO Last administered on 07/03/17 11:59; Admin Dose 20 MG; Start 07/03/17 at 09:00 Montelukast Sodium (Singulair) 10 mg QHS PO Last administered on 07/03/17 20: 26; Admin Dose 10 MG; Start 07/03/17 at 21:00 Senna/Docusate Sodium (Senokot-S) 1 tab BID PO Last administered on 07/03/17 20:26; Admin Dose 1 TAB; Start 07/03/17 at 09:00 Simethicone (Mylicon) 80 mg TID PRN PO DISTENSION/GAS/BLOATING; Start 07/03/17 at 08:30 Magnesium Hydroxide (Milk Of Mag) 30 ml BID PRN PO CONSTIPATION; Start at 08:30 Acetaminophen (Tylenol Tab) 1,000 mg Q4H PRN PO TEMP GREATER THAN 100.4F; Start 07/03/17 at 08:30 Gabapentin (Neurontin) 300 mg HS PO Last administered on 07/03/17 20:26; Admin Dose 300 MG; Start 07/03/17 at 21:00 Oxycodone/ Acetaminophen (Percocet (5/ 325)) 1 tab Q4H PRN PO PAIN LEVEL 1-5 Last administered on 07/04/17 02:12; Admin Dose 1 TAB; Start 07/03/17 at 08:30 Oxycodone/ Acetaminophen (Percocet (5/ 325)) 2 tab Q4H PRN PO PAIN LEVEL 6-10 Last administered on 07/04/17 07:50; Admin Dose 2 TAB; Start 07/03/17 at 08:30 Morphine Sulfate (morphine) 2 mg Q2H PRN IV PAIN LEVEL 1-5; Start 07/03/17 at 08:30 Morphine Sulfate (morphine) 4 mg Q4H PRN IV PAIN LEVEL 6-10; Start 07/03/17 at 08:30 Ketorolac Tromethamine (Toradol) 15 mg Q6H PRN IV PAIN; Start 07/03/17 at 08:30 ; Stop 07/06/17 at 08:29 Ondansetron HCl (Zofran Inj) 4 mg Q6H PRN IV NAUSEA AND/OR VOMITING; Start at 08:30 Diphenhydramine HCl (Benadryl) 25 mg Q6H PRN IV PRURITUS; Start 07/03/17 at 08: 30 Aspirin (Aspirin) 81 mg DAILY PO ; Start 07/04/17 at 09:00 Assessment/Plan Chief Complaint/Hosp Course post op shoulder surgery for adhesive capsulitis Problems: Additional Assessment/Plan patient medically stable cathyn per dr solis--thank you [facility] BOO GRIGSBY MD Jul 04, 2017 08:03
[2017-07-04] MEDS: SENNA/DOCUSATE NA (8.6MG/50MG) TAB PO SCH (08:15)
[2017-07-04] MEDS: CITALOPRAM 20 MG TAB PO SCH (08:15)
[2017-07-04] MEDS: BACLOFEN 10 MG TAB PO SCH (08:15)
[2017-07-04 08:41] VITALS: BP 122/68; PULSE 95
[2017-07-04] MEDS ORDERED: ASPIRIN 81 MG TAB PO SCH (09:00)
== END 2017-07-04 10:39 | disposition home or self-care (01) | DRG 483 ==
LOC: REC 05:22 → MS1 10:00
PROVIDERS: ADMIT Orthopaedic Surgery; ATTEND Orthopaedic Surgery
PROC: 0RPJ0JZ Removal of Synthetic Substitute from Right Shoulder Joint, Open Approach (ICD-10-PCS; 2017-07-03)
PROC: 0RRJ00Z Replacement of Right Shoulder Joint with Reverse Ball and Socket Synthetic Substitute, Open Approach (ICD-10-PCS; principal; 2017-07-03 07:00)
DX: T84.098A Other mechanical complication of other internal joint prosthesis, initial encounter (principal); E78.5 Hyperlipidemia, unspecified; G89.4 Chronic pain syndrome; K21.9 Gastro-esophageal reflux disease without esophagitis; M75.101 Unspecified rotator cuff tear or rupture of right shoulder, not specified as traumatic
CPT/HCPCS: 86999; 88304; 97162; J0171; J0690; J0735; J1885; J2274; J2405; J2765; J2795; J3370; J7120